=== PATIENT | female | born 1950 | race Caucasian/White ===

== ENCOUNTER 2016-04-02 19:00 | Inpatient (IN) | payer BC ==
[~2016-04-02] VITALS: Ht 162.6 cm; Wt 71.5 kg
[~2016-04-02 19:00] MED LIST: BAYER CHEWABLE81 MG PO; BUPROPION HCL100 M1 PO; CARAFATE1 G PO; ISOSORBIDE MONO30 M1 PO; LOPRESSOR25 MG PO; PLAVIX75 MG PO; PROTONIX40 MG PO; TRAMADOL HCL E100 M1 PO; XANAX0.25 MG PO
--- NOTE | 2016-04-02 21:55 | NUR ---
RECIEVED TO ROOM 2101 FROM REHAB VIA [facility]. SON AND DAUGHTER IN LAW AT BED SIDE. VITALS STABLE. PLACED ON O2 WITH HUMIDIFICATION AT 3 LITER VIA NC. PLACED BOX BED ALARM TO RIGHT SLEVE OF PTS SCRUBS TOP. ORIENTATED TO ROOM AND CL. INFORMED PT TO CALL FOR ASSISTANCE AND NOT TO GET OUT OF BED BY HER SELF, PT STATED UNDERSTANDING. BED LOW, SR UP 3, CL IN REACH.
[2016-04-02 22:35] VITALS: BP 143/73
--- NOTE | 2016-04-02 22:40 | NUR ---
IV PLACED TO RIGHT AC BY JESS YOUTH SERVICES SPECIALIST. 20 GAUGE, FIRST ATTEMPT. PT TOLERATED WELL.
[2016-04-02] MEDS ORDERED: K-DUR20 MEQ PO (22:47)
--- NOTE | 2016-04-02 23:00 | NUR ---
MAXIPIME ABX INFUSING TO RIGHT AC IV, NO S/S ADVERSE REACTION NOTED. WILL CONT TO MONITOR.
--- NOTE | 2016-04-03 00:05 | NUR ---
UP WITH ASSIST TO BR, GAIT UNSTEADY.
--- NOTE | 2016-04-03 00:31 | NUR ---
PT TRYING TO GET OUT OF BED, PULLING AT IV TUBING AND PULLING OFF OXYGEN. XANAX 1 TAB GIVEN FOR S/S AGITATION. VANC. INFUSING TO RIGHT AV IV, NO S/S ADVERSE REACTION NOTED, WILL CONT TO MONITOR.
--- NOTE | 2016-04-03 01:15 | NUR ---
PT RESTING SOUNDLY WITHOUT C/O OR DISTRESS NOTED. CALL LIGHT IS WITHIN REACH. NO NEEDS VOICED. WILL MONITOR.
[2016-04-03 01:18] VITALS: BMI 28.4
[2016-04-03 05:59] VITALS: BP 137/73
--- NOTE | 2016-04-03 07:19 | NUR ---
0705-LAYING ON RIGHT SIDE, DENIES NEEDS AT PRESENT TIME. IV INFUSING TO RIGHT AC WITHOUT REDNESS NOTED. ON 3L PER NC WITH HUM. BOX ALARM IS IN USE. CALL LIGHT AT SIDE, WILL CONTINUE TO MONITOR.
[2016-04-03 08:00] VITALS: BP 138/68
--- NOTE | 2016-04-03 10:31 | NUR ---
TO RADIOLOGY FOR CXR PAST BREATHING TREATMENT VIA WHEELCHAIR AND PORTABLE O2.
--- NOTE | 2016-04-03 10:48 | NUR ---
RETURNS FROM RADIOLOGY
[2016-04-03 11:38] VITALS: Ht 162.6 cm; Wt 71.5 kg
[2016-04-03 12:33] VITALS: BP 135/68
[2016-04-03 14:03] LABS: BASOPHILS 0.1 % (0.0-2.0); EOSINOPHILS 0 % (0-7); HEMOGLOBIN 11.1 g/dL (12-16); IMMATURE GRANULOCYTES 1.1 % (0-5); LYMPHOCYTES 8.3 % (15-50); MCH 26.6 pg (26.0-34.0); MCHC 31.7 g/dL (31.0-37.0); MCV 83.9 fL (80.0-100.0); MEAN PLATELET VOLUME 10.3 fL (7.4-10.4); MONOCYTES 4.6 % (2-11); NEUTROPHILS 85.9 % (40-80); PLATELET COUNT 351 10x3/uL (130-400); RBC 4.17 10x6/uL (4.00-5.40); RDW 16.3 % (11.5-14.5); WBC 9.8 10x3/uL (4.8-10.8)
[2016-04-03 14:11] LABS: ANION GAP 14.2 mmol/L (8-16); CALCIUM 9.1 mg/dL (8.5-10.1); CARBON DIOXIDE 33.1 mmol/L (21.0-32.0)
[2016-04-03 14:17] LABS: CREATININE - SERUM 1.4 mg/dL (0.6-1.3)
[2016-04-03 14:18] LABS: POTASSIUM - SERUM 3.3 mmol/L (3.5-5.1)
[2016-04-03 16:00] VITALS: BP 153/69
--- NOTE | 2016-04-03 16:28 | NUR ---
PLACED ON HEART MONITOR SHOWING SR, HR 84.
[2016-04-03 16:39] LABS: ALBUMIN 2.4 g/dL (3.4-5.0); BILIRUBIN - DIRECT 0.58 mg/dL (0.00-0.30); BILIRUBIN - INDIRECT 0.49 mg/dL (0.00-1.00); BILIRUBIN - TOTAL 1.07 mg/dL (0.2-1.3); PROTEIN - SERUM 5.9 g/dL (6.4-8.2)
--- NOTE | 2016-04-03 17:34 | NUR ---
1716-PATIENT IS COMPLAINING OF "CHEST PAIN". DAUGHTER THINKS IT IS MORE ANXIETY. PRN XANAX GIVEN.
[2016-04-03 20:30] VITALS: BP 173/94
--- NOTE | 2016-04-03 23:27 | NUR ---
ALERT/AWAKE TALKING TO VISITOR. DENIES ANY NEEDS.
[2016-04-04] VITALS (13 sets, daily range): BP systolic 94–137; BP diastolic 47–76
[2016-04-04 05:10] LABS: BASOPHILS 0.1 % (0.0-2.0); EOSINOPHILS 0 % (0-7); HEMATOCRIT 34.3 % (36.0-48.0); IMMATURE GRANULOCYTES 0.8 % (0-5); LYMPHOCYTES 3.9 % (15-50); MCH 26.4 pg (26.0-34.0); MCHC 32.1 g/dL (31.0-37.0); MCV 82.5 fL (80.0-100.0); MEAN PLATELET VOLUME 10.4 fL (7.4-10.4); MONOCYTES 8.5 % (2-11); NEUTROPHILS 86.7 % (40-80); PLATELET COUNT 366 10x3/uL (130-400); RBC 4.16 10x6/uL (4.00-5.40); RDW 16.5 % (11.5-14.5); WBC 13.7 10x3/uL (4.8-10.8)
[2016-04-04 05:28] LABS: APTT 34.7 SECONDS (22.8-39.4); INR 1.31 (0.85-1.17); PROTIME 16.1 SECONDS (11.6-15.0)
[2016-04-04 05:37] LABS: ANION GAP 12.1 mmol/L (8-16); CALCIUM 9.3 mg/dL (8.5-10.1); CARBON DIOXIDE 33.3 mmol/L (21.0-32.0); CREATININE - SERUM 1.3 mg/dL (0.6-1.3); POTASSIUM - SERUM 3.4 mmol/L (3.5-5.1)
--- NOTE | 2016-04-04 12:16 | NUR ---
PT BACK FROM THORACENTESIS. PT WITH CHEST TUBE TO LEFT CHEST. HOOKED UP TO WATERSEAL/PLEURVAC AND WALL SUCTION AT 20. FAMILY AT BEDSIDE. PT ALERT AND ORIENTED. PT DENIES NEEDS AT THIS TIME WILL CONTINUE TO MONITOR.
[2016-04-04 13:14] LABS: PROTEIN - BODY FLUID 3.2 G/DL
[2016-04-04 13:16] LABS: MESOTHELIALS BF 6 %; NEUT - BF 51 %
[2016-04-04 13:17] LABS: LYMPH - BF 43 %
--- NOTE | 2016-04-04 14:47 | NUR ---
GIVEN PT PILLOW AND TAUGHT PT SPLINTING TECHNIQUES FOR COUGHING.
--- NOTE | 2016-04-04 17:30 | NUR ---
PT SITTING UP IN BED READY TO GO TO SLEEP FOR THE NIGHT "JAIMIE HAD A LONG DAY." TURNED OFF LIGHTS. PT DENIES OTHER NEEDS.
[2016-04-04 18:56] LABS: APPEARANCE CLEAR (CLEAR); BILIRUBIN NEGATIVE (NEGATIVE); COLOR YELLOW (YELLOW); GLUCOSE NEGATIVE (NEGATIVE); KETONE NEGATIVE (NEGATIVE); LEUKOCYTE ESTERASE NEGATIVE (NEGATIVE); NITRITE NEGATIVE (NEGATIVE); PROTEIN NEGATIVE (NEGATIVE); SPECIFIC GRAVITY 1.015 (1.005-1.020); UROBILINOGEN NORMAL (NORMAL)
[2016-04-05 00:30] VITALS: BP 101/50
--- NOTE | 2016-04-05 01:36 | NUR ---
PT IS C/O SEVERE PAIN WHERE HER CHEST TUBE IS PLACED, AND WHERE HER RIB FX'S ARE. HAVE ASKED MUD MIXER PHYSICIAN FOR TORADOL AFTER DISCUSSING WITH PT OTHER OPTIONS FOR PAIN MEDICATION. PT STATED SHE HAS TAKEN TORADOL IN THE PAST WITHOUT ANY COMPLICATIONS AND STATES THAT IT WORKS WELL FOR HER.
--- NOTE | 2016-04-05 02:25 | NUR ---
RECEIVED ORDER FROM DR. PELAEZ ER, FOR IV TORADOL 30MG Q 6 PRN PAIN. PT WAS GIVEN THE FIRST DOSE ALONG WITH HER PRN TYLENOL. PT ALSO GIVEN WARM BLANKET TO AID WITH DISCOMFORT. CONTINUE TO MONITOR CLOSELY.
[2016-04-05 04:30] VITALS: BP 102/58
[2016-04-05 06:21] LABS: BASOPHILS 0.1 % (0.0-2.0); EOSINOPHILS 0 % (0-7); HEMATOCRIT 33.9 % (36.0-48.0); HEMOGLOBIN 10.8 g/dL (12-16); IMMATURE GRANULOCYTES 0.7 % (0-5); LYMPHOCYTES 4.1 % (15-50); MCH 26.4 pg (26.0-34.0); MCHC 31.9 g/dL (31.0-37.0); MCV 82.9 fL (80.0-100.0); MEAN PLATELET VOLUME 10.4 fL (7.4-10.4); MONOCYTES 5.5 % (2-11); NEUTROPHILS 89.6 % (40-80); RBC 4.09 10x6/uL (4.00-5.40); RDW 16.7 % (11.5-14.5)
[2016-04-05 06:28] LABS: PLATELET COUNT 470 10x3/uL (130-400); WBC 17.8 10x3/uL (4.8-10.8)
[2016-04-05 06:32] LABS: ANION GAP 12.7 mmol/L (8-16); CALCIUM 8.3 mg/dL (8.5-10.1); CARBON DIOXIDE 31.3 mmol/L (21.0-32.0); CREATININE - SERUM 1.6 mg/dL (0.6-1.3); MAGNESIUM - SERUM 1.2 mg/dL (1.8-2.4); PHOSPHOROUS 3.8 mg/dL (2.5-4.9)
--- NOTE | 2016-04-05 07:15 | NUR ---
RECIEVED REPORT ON PATIENT, PATIENT IS SLEEPING AT THIS TIME, NAD NOTED AT THIS TIME, CHEST RISES AND FALLS EQUALLY. PATIENT IS 96% ON 3L/MIN VIA NC. PATIENT HAS A R AC IV WITH NS INFUSING AT 10ML/HR. PATIENT HAS A CHEST TUBE TO L SIDE NOTED, HOOKED UP TO SUCTION. BED IS LOW AND LOCKED AT THIS TIME. PATIENT IS SR ON MONITOR WITH A RATE OF 81. WILL CONT TO MONITOR PATIENT. CPOC
[2016-04-05 07:35] VITALS: BP 105/57
--- NOTE | 2016-04-05 09:30 | NUR ---
LEAVING FLOOR. REPORT GIVEN TO WILLIAM HARDY TO RESUME CARE
--- NOTE | 2016-04-05 10:58 | NUR ---
ASSISTED UP TO BR. CONY WELL. VOIDED QS. WILL CONTINUE TO MONITOR
[2016-04-05 11:22] VITALS: BP 101/53
--- NOTE | 2016-04-05 12:41 | NUR ---
PT GOT PATIENT UP IN CHAIR. CONY WELL.
--- NOTE | 2016-04-05 13:30 | NUR ---
RETURNED TO FLOOR, RESUME CARE OF PATIENT, PATIENT IS SITTING UP IN CHAIR AT THIS TIME, DENIES ANY NEEDS, WANTS TO TRY TO KEEP SITTING UP CPOC
--- NOTE | 2016-04-05 13:32 | NUR ---
RETURNED TO RESUME CARE, PATIENT SITTING UP IN CHAIR. FAMILY AT BEDSIDE. DENIES ANY NEEDS. CPOC
--- NOTE | 2016-04-05 13:43 | NUR ---
SCDS PUT ON PATIENT AND TOLERATING. CPOC
--- NOTE | 2016-04-05 14:30 | NUR ---
CONTINUING TO FOLLOW ELECTROLYTE PROTOCOL FOR PATIENT. CPOC
[2016-04-05 15:34] VITALS: BP 100/56
--- NOTE | 2016-04-05 18:00 | NUR ---
CONTINUING TO FOLLOW ELECTROLYTE PROTOCOL FOR PATIENT. PATIENT EATING DINNER AT THIS TIME. DENIES ANY NEEDS AT THIS TIME. CPOC
[2016-04-05 22:42] VITALS: BP 125/54
--- NOTE | 2016-04-06 00:51 | NUR ---
NURSE ROUNDS 23:00 - PT LYING IN BED, AWAKE, ALERT, ORIENTED, STATED SHE IS FEELING BETTER TODAY. PT DENIED ANY ACUTE NEEDS. CONTINUE TO MONITOR CLOSELY. BED LOW, CALL LIGHT IN REACH, SIDE RAILS X 2, HOB 30 DEGREES.
--- NOTE | 2016-04-06 05:24 | NUR ---
PT AWAKE, ALERT, ORIENTED, DENIES ANY NEEDS. I DID GIVE PT A CARTON OF DIONNE LEI. CONTINUE TO MONITOR CLOSELY.
[2016-04-06 05:35] VITALS: BP 123/52
[2016-04-06 06:52] LABS: BASOPHILS 0.2 % (0.0-2.0); EOSINOPHILS 0.1 % (0-7); HEMATOCRIT 39.2 % (36.0-48.0); HEMOGLOBIN 12.1 g/dL (12-16); LYMPHOCYTES 12.1 % (15-50); MCH 25.4 pg (26.0-34.0); MCHC 30.9 g/dL (31.0-37.0); MCV 82.2 fL (80.0-100.0); MEAN PLATELET VOLUME 10.5 fL (7.4-10.4); MONOCYTES 7.2 % (2-11); NEUTROPHILS 79.4 % (40-80); PLATELET COUNT 485 10x3/uL (130-400); RBC 4.77 10x6/uL (4.00-5.40); RDW 16.8 % (11.5-14.5); WBC 16.7 10x3/uL (4.8-10.8)
[2016-04-06 06:53] LABS: ANION GAP 9.8 mmol/L (8-16); CALCIUM 8.4 mg/dL (8.5-10.1); CARBON DIOXIDE 34.8 mmol/L (21.0-32.0); CREATININE - SERUM 1.7 mg/dL (0.6-1.3); POTASSIUM - SERUM 3.6 mmol/L (3.5-5.1)
--- NOTE | 2016-04-06 07:00 | NUR ---
RECEIVED REPORT. ASSUMED CARE OF PATIENT. AWAKE, ALERT. A&O. RESP EVEN AND UNLABORED. CHEST TUBE TO LEFT CHEST PATENT. CALL LIGHT WITHIN REACH. NO DISTRESS.
[2016-04-06 07:25] VITALS: BP 100/52
--- NOTE | 2016-04-06 09:16 | NUR ---
IR HERE AND REMOVED CHEST TUBE FROM POSTERIOR LEFT UPPER BACK AREA. NO DISTRESS.
[2016-04-06 11:21] VITALS: BP 113/63
--- NOTE | 2016-04-06 12:30 | NUR ---
SPOKE WITH BRYN IN IR ABOUT DRESSING APPLIED TO PATIENTS LEFT UPPER BACK AFTER CHEST TUBE REMOVED THIS AM. DRESSING SATURATED WITH CLEAR SEROUS FLUID. BRYN GAVE AUTHORIZATION TO CHANGE 4X4'S BUT TO LEAVE THE PETROLEUM GAUZE IN PLACE AND COVER WITH A TEGADERM. DRESSING CHANGED AT THIS TIME WHILE PATIENT SITTING UP TO CHAIR AT BEDSIDE. NO DISTRESS. TOLERATED DRESSING CHANGE WELL.
--- NOTE | 2016-04-06 13:36 | NUR ---
Nutrition follow-up: Diet: Low sodium PO intake ~75% of meals Labs reviewed Wt: 157# +BM Chest tube removed today PO intake remains good at this time Will continue to provide food choices and honor food preferences. RDN following.
--- NOTE | 2016-04-06 15:27 | NUR ---
Patient Name: BREN GOLDEN Admission Status: Elective Accout number: [id number] Admission Date: 04-02-2016 : 1950 Admission Diagnosis:PNEUMONIA, UNSPECIFIED ORGANISM Attending: SOFY Current LOS: 4 Anticipated DC Date: Planned Disposition: Home Primary Insurance: [employer] (now [employer]) HLTH EXCHANGE Discharge Planning Comments: * Is the patient Alert and Oriented? Yes 0 * How many steps to enter\exit or inside your home? NONE 0 * PCP DR ORTIZ 0 * Pharmacy [facility] [address] 0 * Preadmission Environment Acute Inpatient Rehab 0 * Facility Name [facility] 0 * ADLs Partial Dependent 0 * Partial ADLs (Assistance needed) Ambulation Medication Management 0 * Equipment Cane Nebulizer Shower Chair Walker 0 * Other Equipment [employer] [facility] MEDICAL EQUIPMENT PROVIDER PREFERENCE 0 * List name and contact numbers for known caregivers / representatives who currently or will assist patient after discharge: AG GOLDEN, FATHER, 0 * Community resources currently utilized None 0 * Please name any agencies selected above. NONE 0 * Additional services required to return to the preadmission environment? No 0 * Can the patient safely return to the preadmission environment? Yes 0 * Has this patient been hospitalized within the prior 30 days at any hospital? Yes 0 CM MET WITH PT IN ROOM TO DISCUSS DISCHARGE PLANNING AND NEEDS. PT REPORTS LIVING AT HOME INDEPENDENTLY WITH HER SISTER. PT HAS SHOWER CHAIR, WALKER, NEBULIZER AND CANE, PROVIDER IS [employer]. PT HAS NO OUTSIDE SERVICES ASSISTING IN THE HOME. PT WAS AT THE [facility] PRIOR TO REHAB AT [place] AND THEN ADMITTED HERE FOR ACUTE CARE. PT REPORTS SHE CAME CLOSE TO DYING TWICE. CM DISCUSSED AVAILABILITY OF HOME HEALTH, REHAB SERVICES AND MEDICAL EQUIPMENT. PT DENIES DISCHARGE NEEDS AND THINKS SHE DOES NOT NEED TO GO BACK TO INPATIENT REHAB NOR NEEDS HOME HEALTH; PT REPORTS HER SON OR SISTER WILL PICK HER UP FOR DISCHARGE HOME. BALWINDER MAGALLON, PT'S INSURANCE BURN OUT SCARFING OPERATOR IS HERE TO SEE PT IN ROOM. PT DENIES DISCHARGE NEEDS AT THIS TIME, PLANS TO DISCHARGE BACK HOME WITH HER SISTER THAT IS AVAILABLE TO ASSIST NEEDED. CM TO FOLLOW AND ASSIST NEEDED. Plant Operations Engineer: Wero Rivera
[2016-04-06 15:33] VITALS: BP 112/57
[2016-04-06 22:28] VITALS: BP 103/56
[2016-04-07 00:59] VITALS: BP 124/57
--- NOTE | 2016-04-07 03:39 | NUR ---
NURSE ROUNDS 19:30 - PT AWAKE, ALERT, ORIENTED, FRIEND AT BEDSIDE. PT DENIES ANY NEEDS. CONTINUE TO MONITOR CLOSELY. BED LOW, CALL LIGHT IN REACH, SIDE RAILS X 2, HOB 30 DEGREES. PT STATES SHE IS FEELING BETTER, AND IS HAVING NO DIFFICULTY SINCE HAVING THE CHEST TUBE REMOVED.
[2016-04-07 05:21] VITALS: BP 113/66
[2016-04-07 06:16] LABS: BASOPHILS 0.5 % (0.0-2.0); EOSINOPHILS 0.5 % (0-7); HEMATOCRIT 36.9 % (36.0-48.0); HEMOGLOBIN 11.4 g/dL (12-16); IMMATURE GRANULOCYTES 1.2 % (0-5); LYMPHOCYTES 16.3 % (15-50); MCH 25.4 pg (26.0-34.0); MCHC 30.9 g/dL (31.0-37.0); MCV 82.2 fL (80.0-100.0); MONOCYTES 8.5 % (2-11); PLATELET COUNT 450 10x3/uL (130-400); RBC 4.49 10x6/uL (4.00-5.40); RDW 16.6 % (11.5-14.5)
[2016-04-07 06:19] LABS: WBC 11.3 10x3/uL (4.8-10.8)
--- NOTE | 2016-04-07 06:27 | NUR ---
PT AWAKE, ALERT, ORIENTED, DENIES ANY NEEDS. PTS IV INFILTRATED AND PT DOES NOT WANT TO BE RESITED R/T TO BEING D/C TODAY. CONTINUE TO MONITOR CLOSELY.
[2016-04-07 07:02] LABS: ANION GAP 11.3 mmol/L (8-16); CALCIUM 8.4 mg/dL (8.5-10.1); CREATININE - SERUM 1.7 mg/dL (0.6-1.3); POTASSIUM - SERUM 3.3 mmol/L (3.5-5.1); VANCOMYCIN - TROUGH 29.6 ug/mL (10.0-20.0)
[2016-04-07 08:00] VITALS: BP 124/69
[2016-04-07 10:19] LABS: FUNGUS STAIN Final report (())
--- NOTE | 2016-04-07 11:35 | NUR ---
Sitting on side of bed, respirations easy. Telemetry in place at SR 98. States she is felling better and has requested to be discharged today. Assessment complete, dressing clean, dry and intact to left side from abandon chest tube.
[2016-04-07] MEDS ORDERED: CLEOCIN HCL300 MG PO (11:50)
[2016-04-07] MEDS ORDERED: FLORAJEN3 CAPS460 MG PO (11:50)
[2016-04-07] MEDS ORDERED: MELATONIN 3 MG1 TAB PO (11:50)
[2016-04-07] MEDS ORDERED: LEVAQUIN500 MG PO (11:50)
[2016-04-07] MEDS ORDERED: PREDNISONE20 MG PO (11:50)
[2016-04-07] MEDS ORDERED: LASIX20 MG PO (11:50)
[2016-04-07 12:00] VITALS: BP 127/73
[2016-04-07 17:11] LABS: AFB SPECIMEN PROCESSING Concentration (())
--- NOTE | 2016-04-08 14:44 | EC ---
PATIENT:BREN GOLDEN DATE OF SERVICE: 04/02/16 SEX: F MEDICAL RECORD: [id number] DATE OF : [birth year] LOCATION:D.M2 D.210 AGE OF PATIENT: 65 ADMISSION DATE: 04/02/16 REFERRING PHYSICIAN: INTERPRETING PHYSICIAN: GUNNAR REYES MD ECHOCARDIOGRAM REPORT ECHO CHARGES 4 ECHO COMPLETE CLINICAL DIAGNOSIS: CHF ECHOCARDIOGRAPHIC MEASUREMENTS (adult normal given) AC root (d.<3.7cm) 4.0 LV Septum d (<1.2 cm> 1.5 Valve Excursion 1.5 LV Septum (systole) 1.7 Left Atria (s.<4.0cm> 3.1 LVPW d(<1.2cm) 1.5 RV (d.<2.3cm) 4.1 LVPW (sytole) 1.6 LV diastole(<5.6CM) 5.2 MV E-F(>70mm/sec) LV systole 3.7 LVOT Diameter 1.9 MV exc.(>10mm) 1.9 Est.ejection fraction (50-75%) Pericardial Effusion N DOPPLER: LVIT A 68.0 E 89.0 LA RVSP 22 LVOT 98 AOP1/2T 529 Asc. Ao 137 RVOT 85 RA PA AV Gradient Peak 7.51 AV Mean 4.30 AV Area 2.4 MV Gradient Peak 4.02 MV Mean 1.2 MV Area COMMENTS: Spring Fitter Helper: Martita DAVIS Automatic Bandsaw Tender:Mary Argueta TAPE# PACS DATE OF SERVICE: 04/03/2017 Adequate 2D echo, color flow and spectral Doppler, and M-mode. LVH is present. LV internal dimension normal. Wall motion is normal. EF is greater than or equal to 55%. Aortic valve sclerosis without stenosis by Doppler interrogation. The left atrium is normal at 3.1 cm. Mitral valve shows no prolapse. Trace MR. Right-sided chamber is grossly normal. Trace TR. TRANSINT:[id number] Voice Confirmation ID: [id number] DOCUMENT ID: [id number] ECHOCARDIOGRAM REPORT [id number] BREN GOLDEN GUNNAR REYES MD at 1444 CC: [id number] DICTATION DATE: 04/04/16 0911 OUTBOARD MOTORS EXPERIMENTAL MECHANIC: 04/04/16 1013 DIS IN 04/07/16 [facility] [address] [facility], [facility]
--- NOTE | 2016-04-08 14:44 | CN ---
PATIENT NAME:BREN GOLDEN MEDICAL RECORD: [id number] : [birth year] LOCATION:D. D.2102 ADMIT DATE: 04/02/16 ACCOUNT: [id number] CONSULTING PHYSICIAN: GUNNAR REYES MD REFERRING PHYSICIAN: SHUBHAM BRAR MD DATE OF CONSULTATION: 04/03/2016 Cardiology Consultation HISTORY OF PRESENT ILLNESS: This is a 65-year-old female transferred up from rehab, somewhat intermittently confused, but had a protracted course at the [facility]. Most of the information is gleaned from old chart. Apparently underwent stenting to the right coronary under TIVA at the [facility], had subsequent V-tach, V-fib, required cardioversion and CPR, subsequently fractured ribs 3rd through 7th. She was noted to have a pleural effusion with some hematoma and was transferred here for worsening dyspnea. Some of this sounds pulmonary edema. LV function is unknown at this point, ____ ongoing pain, worse with inspiration. PAST MEDICAL HISTORY: Includes: 1. History of coronary artery disease as described above with ____. She has history of chronic renal insufficiency. 2. Hypertension. 3. Hyperlipidemia. 4. Cardiovascular disease status post cerebrovascular accident. 5. Obstructive pulmonary disease. 6. Gastroesophageal reflux disease. SOCIAL HISTORY: Currently, unobtainable. REVIEW OF SYSTEMS: Unobtainable. MEDICATIONS: On transfer here include Plavix 75 every day, Imdur 30 b.i.d., metoprolol 25 b.i.d., Xanax 0.25 q.6 p.r.n., aspirin 81 mg every day, tramadol 100 mg q.6 hours p.r.n., Lasix 40 every day, Protonix 40 every day, Carafate 1 gram a.c. and q.h.s. PHYSICAL EXAMINATION: GENERAL: Middle-aged female, appears somewhat older than stated age. VITAL SIGNS: Blood pressure 138/68, pulse 83 and regular. HEENT: Normocephalic and atraumatic. NECK: No bruits noted. HEART: Regular. Limited exam ____ obvious S3. LUNGS: Diminished air excursion, some of this due to pleuritic pain. ABDOMEN: Soft and nontender. EXTREMITIES: Pulses are actually well preserved, 2+ with no edema. IMPRESSION: Coronary artery disease, status post complicated ____ intervention with right coronary cusp dissection, ventricular tachycardia, ventricular fibrillation, CPR. At this point in time, we will check echocardiographic study to get a baseline of her EF post-code, etc. Further recommendations based on clinical course. TRANSINT:[id number] Voice Confirmation ID: [id number] DOCUMENT ID: [id number] CONSULT REPORT [id number] BREN GOLDEN,GUNNAR Sanchez MD at 1444 CC: [id number] DICTATION DATE: 04/03/16 1102 DIGITAL CARTOGRAPHIC TECHNICIAN: 04/03/16 1417 DIS IN 04/07/16 [id number] [place] [address]
--- NOTE | 2016-04-28 09:12 | CN ---
PATIENT NAME:BREN GOLDEN MEDICAL RECORD: [id number] : 54 LOCATION:D. D.2102 ADMIT DATE: 04/02/16 ACCOUNT: [id number] CONSULTING PHYSICIAN: SHEY ENG MD REFERRING PHYSICIAN: KP SANTIAGO MD DATE OF CONSULTATION: 04/02/2016 Pulmonary Consultation CONSULT REQUESTING PHYSICIAN: Dr. Kp Santiago. REASON FOR CONSULTATION: Dyspnea, shortness of breath, COPD exacerbation, and bilateral pleural effusion. HISTORY OF PRESENT ILLNESS: Ms. Golden is a 65-year-old female, who was transferred from [facility] for rehab. She sustained 2 cardiopulmonary arrests and resuscitated successfully. She has underwent cardiac catheterization and stent placement. For the last couple of days, she has worsening shortness of breath. She is wheezing. She is coughing. Denies any chest pain. There are no fever and chills, no night sweats. REVIEW OF SYSTEMS: Mainly in the history of present illness. PAST MEDICAL HISTORY: 1. Coronary artery disease. 2. Status post cardiopulmonary arrest. 3. Chronic obstructive pulmonary disease. 4. Hypertension. 5. History of cerebrovascular accident. 6. History of abdominal aortic aneurysm. PAST SURGICAL HISTORY: 1. Appendectomy. 2. Abdominal aortic aneurysm. 3. Multiple cardiac catheterization and stent placement. ALLERGIES: SHE IS ALLERGIC TO DEMEROL. PRESENT MEDICATIONS: On [email or web address] was reviewed. PERSONAL AND SOCIAL HISTORY: The patient is an ex-smoker. She is a nondrinker. FAMILY HISTORY: Noncontributory. PHYSICAL EXAMINATION: GENERAL: The patient is lying comfortably. She is not in acute distress. VITAL SIGNS: The blood pressure 143/73, pulse is 78, respirations 22, temperature 98.2, SPO2 is 90% on 3 liter nasal cannula. HEENT: Conjunctivae are pink. Sclerae nonicteric. NECK: Supple. There is elevated JVD. CHEST: There are bilateral crackles. There are absent sound left base. HEART: Rhythm regular, normal sound, no murmur. ABDOMEN: Soft, bowel sounds present. No hepatosplenomegaly. RECTAL: Deferred. EXTREMITIES: No cyanosis, no clubbing, no pedal edema. CONSULT REPORT [id number] BREN GOLDEN SKIN: Warm, normal turgor. There is 1+ extremity. CENTRAL NERVOUS SYSTEM: The patient is awake and alert. There is no obvious cranial nerve abnormality. The gait was not tested. LABORATORY DATA: CBC: The WBC is 13.4, hemoglobin 9.7, hematocrit is 31, the platelet count 224. Chemistry: Sodium 140, potassium 4.2, chloride 106, BUN is 66, and creatinine is 2.1. IMAGING: Chest radiograph, there is a large left-sided pleural effusion with associated infiltrate. There is small-sized right pleural effusion. IMPRESSION: 1. Acute hypoxic respiratory failure. 2. Acute exacerbation of chronic obstructive pulmonary disease. 3. Bilateral pleural effusions, left more than the right. Possible left-sided parapneumonic. 4. Pneumonia, left lower lobe, most likely hospital-acquired pneumonia with the patient's recent hospitalization. 5. Acute exacerbation. 6. Congestive heart failure, possible systolic dysfunction with coronary artery disease. 7. Status post cardiopulmonary arrest. 8. Coronary artery disease status post stent placement. RECOMMENDATION: 1. Start her on vancomycin, cefepime and Levaquin to cover for methicillin-resistant Staphylococcus aureus as well as Gram-negative rods, with the patient's recent hospitalization, possible hospital-acquired pneumonia. 2. Albuterol and ipratropium nebulizer. 3. Brovana and budesonide nebulizer. 4. Methylprednisolone IV. 5. Start on IV Lasix. 6. Get cardiology consult. Check the cardiac echo. Check the decubitus film, significant fluid on the left. We will proceed with thoracentesis. 7. Get nephrology consult. Dr. Santiago, once again, thank you for involving me in the care of Ms. Golden. TRANSINT:[id number] Voice Confirmation ID: [id number] DOCUMENT ID: [id number] SHEY ENG MD at 0912 CC: KP SANTIAGO MD [id number] DICTATION DATE: 04/03/16 1031 CREAM BUYER: 04/03/16 1359 DIS IN 04/07/[address] [place] [address]
[2016-05-05 07:23] LABS: FUNGUS MYCOLOGY CULTURE Final report (())
--- NOTE | 2016-05-25 09:49 | DS ---
PATIENT:BREN GOLDEN :54 MEDICAL RECORD: [id number] DISCHARGE SUMMARY ADMISSION DATE: 04/02/16 DISCHARGE DATE: 04/07/16 DATE OF ADMISSION: 04/02/2016 DATE OF DISCHARGE: 04/07/2016 DIAGNOSES: 1. Acute hypoxic respiratory failure. 2. Acute exacerbation of chronic obstructive pulmonary disease. 3. Bilateral pleural effusions, peripneumonic. 4. Right lower lobe pneumonia, most likely hospital-acquired. 5. Mgtfw-bz-bprtstv congestive heart failure. 6. Status post cardiopulmonary arrest. 7. Coronary artery disease. 8. Hypertension. 9. Hyperlipidemia. 10. Renal failure. CONSULTS: Dr. Abebe and [place]. Dr. Hill. HOSPITAL COURSE: This is a 65-year-old female that was transferred from rehabilitation, who has had a long course at [facility]. Apparently, underwent stenting of the RCA at [facility], had a subsequent V-tach and V-fib, requiring cardioversion and a CPR. She had a noted pleural effusion with some hematoma and was transferred for worsening dyspnea. She was noted to have some chronic obstructive pulmonary disease exacerbation with [id number]-[id number] hypoxic respiratory failure. She was started on vancomycin, cefepime and Levaquin, as well as DuoNeb updrafts and IV Solu-Medrol and Lasix. Several consultants did see the patient during her hospitalization. She underwent a CT-guided thoracentesis and had a chest tube placed for peripneumonic fluids. A 2D echo showed LV function of 55% with right-sided chamber size, was normal. There is trace regurgitation. The patient's condition did improve with aggressive pulmonary toilet and antibiotic therapy. Her chest tube was removed. The patient was thought to be stable to discharge to home. She had followup appointments in the outpatient setting with Georgi who is the patient primary care physician and Dr. Abebe. Her renal function improved and renal ____. See med rec. TRANSINT:[id number] Voice Confirmation ID: [id number] DOCUMENT ID: [id number] Dictated By: GABRIEL CHASE I have interviewed/examined the above patient and agree with these documented findings. at 1367 at 0948 CC: [id number] DICTATION DATE: 05/21/16 0810 FREIGHT CAR CLEANER DELTA SYSTEM: 05/22/16 0032 DIS IN 04/07/16 [facility] [address] [place] [address]
[2016-05-27 12:16] LABS: ACID FAST CULTURE Negative (()); ACID FAST SMEAR Negative (())
== END 2016-04-07 13:50 | disposition home or self-care (01) | DRG 291 ==
LOC: D.M2 19:00
PROVIDERS: Family Medicine; General Practice; Internal Medicine Nephrology; Internal Medicine Pulmonary Disease; ADMIT Emergency Medicine
PROC: 0W9B30Z Drainage of Left Pleural Cavity with Drainage Device, Percutaneous Approach (ICD-10-PCS; principal; 2016-04-04 11:00)
DX: I11.0 Hypertensive heart disease with heart failure (principal); J15.6 Pneumonia due to other Gram-negative bacteria; J96.01 Acute respiratory failure with hypoxia; J44.0 Chronic obstructive pulmonary disease with (acute) lower respiratory infection; J98.11 Atelectasis; N17.9 Acute kidney failure, unspecified; J90 Pleural effusion, not elsewhere classified; S22.43XA Multiple fractures of ribs, bilateral, initial encounter for closed fracture; J44.1 Chronic obstructive pulmonary disease with (acute) exacerbation; I50.21 Acute systolic (congestive) heart failure; I25.10 Atherosclerotic heart disease of native coronary artery without angina pectoris; X58.XXXA Exposure to other specified factors, initial encounter; Z95.5 Presence of coronary angioplasty implant and graft; Z86.73 Personal history of transient ischemic attack (TIA), and cerebral infarction without residual deficits; Z87.891 Personal history of nicotine dependence

== ENCOUNTER 2016-04-27 08:03 | Inpatient (IN) | payer OTHER ==
[~2016-04-27] VITALS: Ht 162.6 cm; Wt 69.4 kg
[~2016-04-27 08:03] MED LIST changes: +CLEOCIN HCL300 MG PO; +FLORAJEN3 CAPS460 MG PO; +K-DUR20 MEQ PO; +LASIX20 MG PO; +LEVAQUIN500 MG PO; +MELATONIN 3 MG1 TAB PO; +PREDNISONE20 MG PO
[2016-04-27 08:48] LABS: BASOPHILS 0.3 % (0.0-2.0); HEMATOCRIT 34.4 % (36.0-48.0); HEMOGLOBIN 10.7 g/dL (12-16); IMMATURE GRANULOCYTES 0.7 % (0-5); LYMPHOCYTES 11.9 % (15-50); MCH 25.8 pg (26.0-34.0); MCHC 31.1 g/dL (31.0-37.0); MCV 83.1 fL (80.0-100.0); MEAN PLATELET VOLUME 10.1 fL (7.4-10.4); NEUTROPHILS 74.1 % (40-80); RBC 4.14 10x6/uL (4.00-5.40); RDW 17.7 % (11.5-14.5); WBC 9.2 10x3/uL (4.8-10.8)
[2016-04-27 08:55] LABS: PLATELET COUNT 190 10x3/uL (130-400)
[2016-04-27 09:00] LABS: ALBUMIN 2.4 g/dL (3.4-5.0); ALKALINE PHOSPHATASE 150 U/L (46-116); ALT (SGPT) 16 U/L (10-68); BILIRUBIN - TOTAL 0.81 mg/dL (0.2-1.3); CALC OSMOLALITY 276 mosm/kg (275-300); CALCIUM 9.2 mg/dL (8.5-10.1); CARBON DIOXIDE 21.3 mmol/L (21.0-32.0); CHLORIDE - SERUM 101 mmol/L (98-107); CREATININE - SERUM 1.5 mg/dL (0.6-1.3); GLUCOSE 141 mg/dL (74-106); POTASSIUM - SERUM 3.5 mmol/L (3.5-5.1); PROTEIN - SERUM 6.2 g/dL (6.4-8.2); SODIUM 137 mmol/L (136-145); UREA NITROGEN 14 mg/dL (7-18); eGFR NON AFRICAN AMERICAN 37 mL/min (90-120)
[2016-04-27 09:10] LABS: CHOL - HDL RATIO 4.3 ratio (2.3-4.1); CHOLESTEROL, TOTAL 190 mg/dL (0-200); CKMB 0.5 U/L (0.0-3.6); CREATINE KINASE 12 UL (21-215); HDL CHOLESTEROL 44 mg/dL (32-96); LDL CHOLESTEROL 118 mg/dL (0-100); LDL-HDL RATIO 2.7 ratio (1.5-3.5); TRIGLYCERIDE 140 mg/dL (30-200); TROPONIN-I 0.043 ng/mL (0.000-0.060)
--- NOTE | 2016-04-27 12:55 | NUR ---
DAVID RECEIVED TO ROOM VIA WC FROM ER ACCOMPANIED BY NURSE, DAUGHTER IN THE ROOM WITH HER. SHE IS C/O CHEST PAIN RATING AN 8. XANAX GIVEN. REPORTED TO DR. LUCAS. NEW ORDERS RECEIVED.
--- NOTE | 2016-04-27 13:31 | NUR ---
PATIENT REQUESTS MORPHINE FOR CHEST PAIN THAT SHE RATES AN 8. SHE STATES THAT COUGHING, LAYING FLAT AND BECOMING SHORT OF BREATH CAUSES HER INCREASED CHEST PAIN.
--- NOTE | 2016-04-27 14:17 | NUR ---
PATINT SITTING UP IN HER BED, C/O PAIN THAT SHE IS RATING A 7 IN HER CHEST. SHE IS TALKING ON THE PHONE, COUGHS IN ANSWER TO MY QUESTION IF SHE IS SOB.
[2016-04-27 16:29] VITALS: BP 128/68
[2016-04-27 19:00] VITALS: BP 113/67
--- NOTE | 2016-04-27 19:03 | NUR ---
SITTING UP IN BED, AAOX3, SKIN WARM AND DRY, RESP UNLABORED, IV PATENT TO RIGHT FOREARM, VISITOR AT BEDSIDE, NO DISTRESS NOTED
[2016-04-27 19:10] VITALS: BMI 26.1
[2016-04-28] VITALS: BP 121/62
--- NOTE | 2016-04-28 01:51 | NUR ---
PT SLEEPING, NO S&S OF DISTRESS NOTED. BREATHING UNLABORED. TELEMETRY SHOWING NSR AT 87 BPM. BED LOW AND LOCKED, CALL LIGHT IN REACH. WILL CONTINUE TO MONITOR.
[2016-04-28 04:00] VITALS: BP 99/61
[2016-04-28 06:56] LABS: BASOPHILS 0.1 % (0.0-2.0); EOSINOPHILS 0 % (0-7); HEMATOCRIT 32.7 % (36.0-48.0); HEMOGLOBIN 10.1 g/dL (12-16); IMMATURE GRANULOCYTES 0.7 % (0-5); LYMPHOCYTES 8.8 % (15-50); MCH 25.6 pg (26.0-34.0); MCHC 30.9 g/dL (31.0-37.0); MCV 82.8 fL (80.0-100.0); MEAN PLATELET VOLUME 9.4 fL (7.4-10.4); MONOCYTES 6.7 % (2-11); NEUTROPHILS 83.7 % (40-80); PLATELET COUNT 225 10x3/uL (130-400); RBC 3.95 10x6/uL (4.00-5.40); RDW 17.3 % (11.5-14.5); WBC 8.9 10x3/uL (4.8-10.8)
[2016-04-28 07:09] LABS: ANION GAP 17.3 mmol/L (8-16); CALCIUM 9.9 mg/dL (8.5-10.1); CARBON DIOXIDE 24.3 mmol/L (21.0-32.0); CREATININE - SERUM 1.8 mg/dL (0.6-1.3); POTASSIUM - SERUM 3.6 mmol/L (3.5-5.1)
--- NOTE | 2016-04-28 08:16 | NUR ---
INTRODUCED MYSELF TO PT PRIMARY RN FOR TODAYS SHIFT. PT IS ALERT AND ORIENTED SITTING UP IN BED EATING BREAKFAST. PT C/O CHEST PAIN REQUESTING AND PROVIDED WITH PRN MORPHINE. PTS LUNGS ARE CTA THROUGHOUT ALL LOBES WITH LOWER LOBES SLIGHTLY DIMINISHED. PT HAS A R.HAND PIV WITH DRSG CDI AND SWAB CAPS IN USE. PT DENIES ANY FURTHER NEEDS AT THIS TIME, CL IN REACH. WILL CPOC.
[2016-04-28 08:21] VITALS: BP 102/54
--- NOTE | 2016-04-28 09:13 | CN ---
PATIENT NAME:BREN GOLDEN MEDICAL RECORD: [id number] : 54 LOCATION:. D.2124 ADMIT DATE: 04/27/16 ACCOUNT: [id number] CONSULTING PHYSICIAN: SHEY ENG MD REFERRING PHYSICIAN: LOYDA SHANKS MD DATE OF CONSULTATION: 04/27/2016 CONSULT REQUESTING PHYSICIAN: Loyda Shanks MD REASON FOR CONSULTATION: Acute exacerbation of COPD and chest pain. HISTORY OF PRESENT ILLNESS: Ms. Golden is a 65-year-old female, who has a history of COPD and coronary artery disease. Recently, she was in the [facility] in [place] where she sustained 2 cardiopulmonary arrests. She has multiple rib fractures. She has a huge left-sided pleural effusion and thoracentesis was done, which was consistent with hemothorax. The patient did well and discharged home. Now, she is readmitted, for the last 3 days, fever of 103, coughing, whenever she coughs her chest hurts. She also has shortness of breath. She hears herself wheezing. REVIEW OF SYSTEMS: Mainly in the history of present illness. PAST MEDICAL HISTORY: 1. Coronary artery disease. 2. COPD. 3. Hypertension. 4. History of cerebrovascular accident. 5. History of abdominal aortic aneurysm. 6. Status post cardiac arrest times 2. PAST SURGICAL HISTORY: 1. Appendectomy. 2. Abdominal aortic aneurysm repair. 3. She has multi-catheterizations and stent placement in the past. ALLERGIES: SHE IS ALLERGIC TO DEMEROL. PRESENT MEDICATIONS: On [employer] was reviewed. PERSONAL AND SOCIAL HISTORY: The patient is an ex-smoker. She is a nondrinker. FAMILY HISTORY: Noncontributory. PHYSICAL EXAMINATION: GENERAL: Now, the patient is lying comfortably in bed. She coughs. VITAL SIGNS: The blood pressure is 165/84, pulse is 116, respirations 20, temperature is 98.5 and SpO2 is 96% on room air. HEENT: Conjunctivae pink, sclerae nonicteric. NECK: Supple, no JVD. CHEST: Excursion is minimal on both sides. There is left side basal crackle. There is wheeze on forceful expiration. HEART: Rhythm regular, normal sound, no murmur. ABDOMEN: Soft. Bowel sounds present. No hepatosplenomegaly. RECTAL: Deferred. EXTREMITIES: No cyanosis, no clubbing, no pedal edema. CONSULT REPORT [id number] BREN GOLDEN SKIN: Warm, normal turgor. CENTRAL NERVOUS SYSTEM: The patient is awake and alert. There is no obvious cranial nerve abnormality. The gait was not tested. IMAGING: CTA of the chest is negative for PE. There is left basilar atelectasis. There is small pleural effusion. There is a pericardial effusion. LABORATORY DATA: CBC: WBC is 9.2, hemoglobin 10.7, hematocrit 34.7 and platelet count 190. Chemistry: Sodium 137, potassium is 3.5, BUN is 14 and creatinine 1.5. IMPRESSION: 1. Acute exacerbation of chronic obstructive pulmonary disease. 2. Tracheobronchitis. 3. Chest pain, most likely musculoskeletal in origin secondary to fractured ribs. 4. Acute cough. 5. History of coronary artery disease. 6. Left pleural effusion, most likely residual post-hemothorax. 7. Pericardial effusion. RECOMMENDATION: Start on albuterol/ipratropium nebulizers, Brovana and budesonide nebulizer, and methylprednisolone IV. Start on doxycycline, Mucinex DM and Tussionex cough syrup. Follow up labs and chest x-ray in the morning. Dr. Shanks, once again thanks for involving me in the care of Ms. Golden. TRANSINT:[id number] Voice Confirmation ID: [id number] DOCUMENT ID: [id number] SHEY ENG MD at 0913 CC: LOYDA SHANKS MD [id number] DICTATION DATE: 04/27/16 1608 DISTRICT PLANT SUPERVISOR: 04/27/161957 ADM IN [id number] [place] [address]
--- NOTE | 2016-04-28 10:32 | NUR ---
PT RESTING QUIETLY IN BED WITH EYES CLOSED. RR NONLABORED ON RA. NO S/S OF DISTRESS OR ANY CURRENT NEEDS NOTED AT THIS TIME. CL IN REACH. WILL CPOC.
[2016-04-28 12:05] VITALS: BP 107/58
--- NOTE | 2016-04-28 12:54 | NUR ---
PT C/O DEEP SHARP ACHING PAINS IN HER CHEST/LUNGS AREA. REQUESTED AND PROVIDED WITH PRN MORPHINE VIA R.HAND PIV ACCESS. SITE HAS DRSG CDI AND SWAB CAPS IN USE. NO FURTHER NEEDS NOTED AT THIS TIME. CL IN REACH, WILL CTM.
[2016-04-28 13:30] VITALS: Ht 162.6 cm; Wt 69.4 kg
--- NOTE | 2016-04-28 14:02 | NUR ---
PT AMBULATING IN KNIGHT. RR NONLABORED. PT STATES SHE IS FEELING WELL DENIES ANY CURRENT PAIN OR NEEDS. WILL CPOC.
[2016-04-28 16:00] VITALS: BP 98/54
--- NOTE | 2016-04-28 16:19 | NUR ---
PTS R.HAND PIV INFILTRATED. D/C WITH CATHETER TIP FULLY INTACT. 20 GUAGE INSERTED INTO R.FA X1 ATTEMPT. PT REQUESTED AND WAS PROVIDED WITH PRN MORPHINE FOR CHEST/LUNG PAIN. ADMINISTERED SCHEDULED SOLU-MEDROL WELL AND CONNECTED PT TO IV TUBING FOR IV ANBX INFUSING OVER 2 HOURS. PT NOW RESTING AND DENIES ANY FURTHER NEEDS AT THIS TIME. WILL CPOC.
--- NOTE | 2016-04-28 16:28 | NUR ---
OFFERED SCDS BUT PT REFUSED R/T GETTING UP OFTEN TO URINATE AND AMBULATE THE HALLS.
--- NOTE | 2016-04-28 19:03 | NUR ---
SITTING UP IN BED, AAOX3, SKIN WARM AND DRY, RESP UNLABORED, IV PATENT TO RIGHT FOREARM, MOOD PLEASANT, NO DISTRESS NOTED
[2016-04-28 19:56] VITALS: BP 94/50
[2016-04-29] VITALS: BP 90/47
--- NOTE | 2016-04-29 01:31 | NUR ---
LYING IN BED, CALL LIGHT IN REACH. WILL CONTINUE WITH PLAN OF CARE.
[2016-04-29 04:00] VITALS: BP 106/55
--- NOTE | 2016-04-29 05:39 | NUR ---
RESTING QUIETLY IN BED, NO DISTRESS NOTED
[2016-04-29 06:00] LABS: BASOPHILS 0.1 % (0.0-2.0); EOSINOPHILS 0 % (0-7); IMMATURE GRANULOCYTES 0.4 % (0-5); LYMPHOCYTES 7.4 % (15-50); MCH 25.8 pg (26.0-34.0); MCHC 31.3 g/dL (31.0-37.0); MCV 82.5 fL (80.0-100.0); MEAN PLATELET VOLUME 10.2 fL (7.4-10.4); MONOCYTES 3.9 % (2-11); NEUTROPHILS 88.2 % (40-80); RBC 3.88 10x6/uL (4.00-5.40); RDW 17.3 % (11.5-14.5)
[2016-04-29 06:15] LABS: PLATELET COUNT 295 10x3/uL (130-400); WBC 13.6 10x3/uL (4.8-10.8)
[2016-04-29 06:34] LABS: ANION GAP 16.7 mmol/L (8-16); CALCIUM 9.8 mg/dL (8.5-10.1); CARBON DIOXIDE 25.1 mmol/L (21.0-32.0); CREATININE - SERUM 1.8 mg/dL (0.6-1.3); POTASSIUM - SERUM 3.8 mmol/L (3.5-5.1)
--- NOTE | 2016-04-29 07:29 | NUR ---
INTRODUCED MYSELF TO PT PRIMARY RN FOR TODAYS SHIFT. PT IS ALERT AND ORIENTED RESTING QUIETLY IN BED. DISCONNECTED PT FROM IV ANBX. FLUSHED R.FA PIV WITH EASE AND GOT GOOD BLOOD RETURN. SWAB CAPS IN USE. MEGHAN CDI. PT STATES SHE SLEPT WELL AND THAT HER PRN COUGH MED REALLY HELPS. PT DENIES ANY CURRENT NEEDS AT THIS TIME, CL IN REACH. WILL CPOC.
[2016-04-29 08:00] VITALS: BP 102/56
--- NOTE | 2016-04-29 10:54 | NUR ---
PT REQUESTED AND WAS PROVIDED WITH PRN MORPHINE FOR HER CHEST/LUNG PAIN. PT VOICED THANKS AND IS RESTING QUIETLY IN BED. DENIES ANY FURTHER NEEDS AT THIS TIME. CL IN REACH. WILL CPOC.
[2016-04-29 12:00] VITALS: BP 130/46
[2016-04-29 16:00] VITALS: BP 112/53
--- NOTE | 2016-04-29 20:00 | NUR ---
PT RESTING IN BED. NONLABORED RESPIRATIONS ON ROOM AIR. SALINE LOCK TO RFA. REVIEWED PLAN OF CARE. ASSESSMENT COMPLETED.
[2016-04-29 21:18] VITALS: BP 128/76
--- NOTE | 2016-04-29 21:54 | NUR ---
HS MEDS GIVEN. PT REQUESTED IV MORPHINE FOR CHEST/RIB PAIN. REFUSED WELLBUTRIN.
[2016-04-30 01:12] VITALS: BP 98/55
[2016-04-30 05:01] VITALS: BP 124/85
--- NOTE | 2016-04-30 05:37 | NUR ---
AM LAB DRAWN. PT C/O RIB/CHEST DISCOMFORT/PAIN. MEDICATED WITH MORPHINE 2MG SIVP AND STARTED VIBRAMYCIN IVPB. WILL MONITOR. CPOC.
[2016-04-30 06:05] LABS: BASOPHILS 0.1 % (0.0-2.0); EOSINOPHILS 0 % (0-7); HEMATOCRIT 30.7 % (36.0-48.0); HEMOGLOBIN 9.7 g/dL (12-16); IMMATURE GRANULOCYTES 0.8 % (0-5); LYMPHOCYTES 5.8 % (15-50); MCH 25.8 pg (26.0-34.0); MCHC 31.6 g/dL (31.0-37.0); MCV 81.6 fL (80.0-100.0); MEAN PLATELET VOLUME 10.1 fL (7.4-10.4); MONOCYTES 4.2 % (2-11); NEUTROPHILS 89.1 % (40-80); PLATELET COUNT 330 10x3/uL (130-400); RBC 3.76 10x6/uL (4.00-5.40); RDW 17.4 % (11.5-14.5); WBC 13.4 10x3/uL (4.8-10.8)
[2016-04-30 06:08] LABS: ANION GAP 20.7 mmol/L (8-16); CALCIUM 9.5 mg/dL (8.5-10.1); POTASSIUM - SERUM 3.7 mmol/L (3.5-5.1)
[2016-04-30 07:26] VITALS: BP 118/58
[2016-04-30 11:48] LABS: % SATURATION 14 % (15-55); IRON 36 ug/dl (35-150); TOTAL IRON BIND CAPACITY 249 ug/dl (260-445); UNSAT IRON BIND CAPACITY 213 ug/dl (150-375)
[2016-04-30 12:04] VITALS: BP 112/50
--- NOTE | 2016-04-30 12:38 | NUR ---
Patient Name: BREN GOLDEN Admission Status: ER Accout number: [id number] Admission Date: 04-28-2016 : 1950 Admission Diagnosis: Attending: GABRIELLA Current LOS: 2 Anticipated DC Date: Planned Disposition: Home Primary Insurance: [employer]ED [employer]ICA[employer] Discharge Planning Comments: * Is the patient Alert and Oriented? Yes 0 * How many steps to enter\exit or inside your home? NONE 0 * PCP DR. ORTIZ 0 * Pharmacy [facility] [address] 0 * Preadmission Environment Home with Family 0 * ADLs Independent 0 * Equipment Cane Nebulizer Shower Chair Walker 0 * Other Equipment [facility] - MEDICAL EQUIPMENT PROVIDER 0 * List name and contact numbers for known caregivers / representatives who currently or will assist patient after discharge: AG GOLDEN, FATHER, 0 * Community resources currently utilized None 0 * Please name any agencies selected above. NONE 0 * Additional services required to return to the preadmission environment? No 0 * Can the patient safely return to the preadmission environment? Yes 0 * Has this patient been hospitalized within the prior 30 days at any hospital? Yes 0 CM MET WITH PT IN ROOM TO DISCUSS DISCHARGE PLANNING AND NEEDS. PT REPORTS LIVING AT HOME INDEPENDENTLY WITH HER SISTER. PT REPORTS HAVING ALL NEEDED MEDICAL EQUIPMENT PROVIDED BY [facility]. PT HAS NO OUTSIDE SERVICES ASSISTING IN THE HOME. CM DISCUSSED AVAILABILITY OF HOME HEALTH, REHAB SERVICES AND MEDICAL EQUIPMENT. PT DENIES DISCHARGE NEEDS, REPORTS HER SISTER WILL PICK HER UP FOR DISCHARGE HOME. Tractor Trailer Technician: Wero Rivera
--- NOTE | 2016-04-30 13:56 | NUR ---
Nutrition follow-up: Diet: ADA consistent CHO PO intake ~90% average of last 6 meals Labs reviewed +BM Wt: 152# RDN following.
[2016-04-30 16:00] VITALS: BP 109/59
[2016-04-30 17:21] LABS: ERYTHROCYTE SEDIMENTATION RATE 67 mm/hr (0-30)
--- NOTE | 2016-04-30 17:25 | NUR ---
PT C/O HER R.FA HURTING WHERE IV IS. R.FA PIV INFILTRATED, IMMEDIATELY STOPPED ANBX INFUSION AND REMOVED IV WITH CATH TIP FULLY INTACT. WILL TRY TO REGAIN ACCESS AFTER PT FINISHES EATING SHE REQUESTED.
--- NOTE | 2016-04-30 19:12 | NUR ---
NEW IV ACCESS GAINED. 22 GUAGE X1 ATTEMPT VIA R.FA. RECONNECTED PTS IVPB INFUSING OVER 2 HOURS. PT VOICED THANKS AND DENIES ANY FURTHER NEEDS AT THIS TIME. CL IN REACH, BED IN LOWEST, SIDE RAILS X2.
--- NOTE | 2016-04-30 19:17 | NUR ---
URINE SAMPLE COLLECTED AND SENT TO LAB.
[2016-04-30 19:24] LABS: CREATININE - URINE 16.3 mg/dL (30-125)
[2016-04-30 19:25] LABS: PRO/CRE RATIO URINE 0.1 mg/g; PROTEIN - URINE 2.3 mg/dL (0.0-11.9)
[2016-04-30 19:29] LABS: APPEARANCE HAZY (CLEAR); GLUCOSE NEGATIVE (NEGATIVE); KETONE NEGATIVE (NEGATIVE); LEUKOCYTE ESTERASE TRACE (NEGATIVE); NITRITE NEGATIVE (NEGATIVE); PROTEIN NEGATIVE (NEGATIVE); UROBILINOGEN NORMAL (NORMAL)
[2016-04-30 19:30] LABS: BILIRUBIN NEGATIVE (NEGATIVE); COLOR STRAW (YELLOW)
[2016-04-30 19:31] LABS: BACTERIA FEW /hpf (NONE SEEN); EPITHELIAL CELLS 0-5 /hpf (0-5); RED CELLS - URINE 0-5 /hpf (0-5); WHITE CELLS - URINE 0-5 /hpf (0-5); YEAST <1+ /hpf (NONE SEEN)
[2016-04-30 20:25] VITALS: BP 139/61
--- NOTE | 2016-04-30 20:40 | NUR ---
PT RESTING IN BED WITH GREAT PAIN AND DISCOMFORT IN HER RIB AREA. EARLIER SHE RECIEVED IV MORPHINE THAT ENDED UP BEING GIVEN IN AN INFILTRATED IV. NEW IV WAS SITED TO SAME ARM, ALTERNATE SITE AND PT NOW AGAIN MEDICATED WITH MORPHINE 2 MGS SIVP, WELL ADMINISTERING HER HS MEDS, PLUS REQUESTED TUSSIONEX AND XANAX. NONLABORED RESPIRATIONS ON ROOM AIR. SR PER TELEMETRY. SEE SHIFT ASSESSMENT. CPOC.
[2016-05-01 00:41] VITALS: BP 123/60
--- NOTE | 2016-05-01 00:45 | NUR ---
PT MEDICATED WITH MORPHINE FOR PAIN IN RIBS/CHEST. CRYING, ROCKING BACK AND FORTH. WILL MONITOR.
--- NOTE | 2016-05-01 04:06 | NUR ---
RESTING IN BED WITH NO DISTRESS. NO FURTHER SIGNS OF DISCOMFORT.
[2016-05-01 05:48] VITALS: BP 177/72
[2016-05-01 06:09] LABS: BASOPHILS 0.2 % (0.0-2.0); EOSINOPHILS 0 % (0-7); IMMATURE GRANULOCYTES 1.7 % (0-5); LYMPHOCYTES 16.6 % (15-50); MCH 25.8 pg (26.0-34.0); MCHC 31.3 g/dL (31.0-37.0); MCV 82.5 fL (80.0-100.0); MEAN PLATELET VOLUME 9.8 fL (7.4-10.4); MONOCYTES 7.9 % (2-11); NEUTROPHILS 73.6 % (40-80); PLATELET COUNT 313 10x3/uL (130-400); RBC 3.88 10x6/uL (4.00-5.40); RDW 17.3 % (11.5-14.5); WBC 11.4 10x3/uL (4.8-10.8)
[2016-05-01 06:25] LABS: ANION GAP 14.6 mmol/L (8-16); CALCIUM 8.9 mg/dL (8.5-10.1); CARBON DIOXIDE 26.4 mmol/L (21.0-32.0); CREATININE - SERUM 1.8 mg/dL (0.6-1.3)
--- NOTE | 2016-05-01 07:23 | NUR ---
PT SITTING UP IN BED DENIES NEEDS AT THIS TIME WILL CONT TO MONITOR.
[2016-05-01 07:55] LABS: MAGNESIUM - SERUM 1.6 mg/dL (1.8-2.4); PHOSPHOROUS 3.8 mg/dL (2.5-4.9)
[2016-05-01 08:00] VITALS: BP 125/56
[2016-05-01 10:12] LABS: FOLATE (FOLIC ACID) - SERUM 4.8 ng/mL (>3.0)
[2016-05-01 12:00] VITALS: BP 122/62
[2016-05-01 16:27] VITALS: BP 110/62
--- NOTE | 2016-05-01 18:15 | NUR ---
PT SITTING UP IN BED CO PAIN 8 GENERALIZED. PAIN MEDS NOT DUE YET. CALLED DR SHANKS SHE SAID TO CHANGE PAIN MED TO [place] 10 Q6HPRN. PHARM NOT HERE TO VERIFY CALLED [place] SUP TO OVERRIDE. WILL GIVE SOON HE GETS HERE.
[2016-05-01 21:20] VITALS: BP 144/53
--- NOTE | 2016-05-01 21:27 | NUR ---
ALERT/ORIENTED. PIV TO RFA. NONLABORED RESPIRATIONS ON ROOM AIR. INDEPENDENT WITH ADLS/BATHROOM. ASSESSMENT COMPLETED. HS MEDS GIVEN. PAIN PILL/XANAX AND COUGH MEDICATION PER REQUEST. WILL MONITOR.
[2016-05-02 00:30] VITALS: BP 138/63
--- NOTE | 2016-05-02 03:20 | NUR ---
PT RESTING WITH EYES CLOSED. RESPS EVEN/NONLABORED. NO DISTRESS. CPOC.
[2016-05-02 04:30] VITALS: BP 123/67
[2016-05-02 05:03] LABS: BASOPHILS 0.4 % (0.0-2.0); EOSINOPHILS 0.1 % (0-7); HEMATOCRIT 30.9 % (36.0-48.0); HEMOGLOBIN 9.5 g/dL (12-16); IMMATURE GRANULOCYTES 3.3 % (0-5); LYMPHOCYTES 22.5 % (15-50); MCH 25.6 pg (26.0-34.0); MCHC 30.7 g/dL (31.0-37.0); MCV 83.3 fL (80.0-100.0); MONOCYTES 7.7 % (2-11); PLATELET COUNT 295 10x3/uL (130-400); RBC 3.71 10x6/uL (4.00-5.40); RDW 17.5 % (11.5-14.5); WBC 10.7 10x3/uL (4.8-10.8)
[2016-05-02 06:02] LABS: ANION GAP 15.2 mmol/L (8-16); CALCIUM 8.8 mg/dL (8.5-10.1); CARBON DIOXIDE 24.9 mmol/L (21.0-32.0); CREATININE - SERUM 1.6 mg/dL (0.6-1.3); MAGNESIUM - SERUM 1.7 mg/dL (1.8-2.4); PHOSPHOROUS 3.5 mg/dL (2.5-4.9); POTASSIUM - SERUM 4.1 mmol/L (3.5-5.1)
--- NOTE | 2016-05-02 07:15 | NUR ---
RECEIVED REPORT. ASSUMED CARE OF PATIENT. PATIENT SITTING UP IN BED WITH ATTENTION TOWARD TELEVISION. PATIENT COMPLAINING IV INFUSING ANTIBIOTIC IS HURTING HER ARM. RIGHT AC AREA NOTED EDEMATOUS. IV STOPPED. REQUESTED TO RESITE IV TO COMPLETE DOXYCYCLINE AND PATIENT REFUSED RESITING IV. PATIENT STATES SHE IS GOING HOME TODAY. CALL LIGHT WITH IN REACH. NO DISTRESS.
[2016-05-02 08:00] VITALS: BP 132/83
--- NOTE | 2016-05-02 08:30 | NUR ---
22 GAUGE IV REMOVED FROM RIGHT FOREARM. CATHETER TIP INTACT. NO BLEEDING FROM SITE. 2X2 GAUZE APPLIED AND SECURED WITH TAPE. NO DISTRESS. PATIENT REFUSING TO HAVE IV SITE RESITED.
--- NOTE | 2016-05-02 10:11 | NUR ---
PATIENT CONTINUES TO REFUSE IV TO RESITED FOR IV MEDICATIONS DUE TO PATIENT STATES SHE IS GOING HOME TODAY AND SHE HAS BEEN STUCK ENOUGH. RISK/BENEFITS EXPLAINED. NO DISTRESS.
[2016-05-02 12:00] VITALS: BP 112/78
[2016-05-02] MEDS ORDERED: FERREX 150 PLUS1 CAP PO (12:37)
[2016-05-02] MEDS ORDERED: LOPRESSOR25 MG PO (12:37)
[2016-05-02] MEDS ORDERED: NICODERM C1 PATCH .2 TRANSDERM (12:37)
[2016-05-02] MEDS ORDERED: MELATONIN 3 MG1 TAB PO (12:38)
[2016-05-02] MEDS ORDERED: SYMBICORT 16010.2 GM INH (12:40)
[2016-05-02] MEDS ORDERED: PROAIR HFA8.5 GM INH (12:41)
[2016-05-02] MEDS ORDERED: PREDNISONE10 MG PO (12:45)
--- NOTE | 2016-05-02 15:06 | NUR ---
1500 DISCHARGE INSTRUCTIONS PROVIDED TO PATIENT AND FAMILY. PATIENT VERBALIZED ALL INSTRUCTIONS. STRESSED THE IMPORTANCE OF FOLLOWING UP WITH AND . PATIENT HAD NO QUESTIONS. INSTRUCTED PATIENT TO CALL IF SHE HAD ANY QUESTIONS AFTER SHE GOT HOME.
[2016-05-02 15:08] LABS: SPE - A/G RATIO 0.9 (0.7-1.7); SPE - ALBUMIN 2.7 g/dL (2.9-4.4); SPE - ALPHA-1 GLOBULIN 0.3 g/dL (0.0-0.4); SPE - ALPHA-2 GLOBULIN 1.2 g/dL (0.4-1.0); SPE - BETA GLOBULIN 0.9 g/dL (0.7-1.3); SPE - GAMMA GLOBULIN 0.5 g/dL (0.4-1.8); SPE - M-SPIKE Not Observed g/dL (Not Observed); SPE - TOTAL PROTEIN 5.6 g/dL (6.0-8.5)
--- NOTE | 2016-05-02 15:08 | NUR ---
PATIENT CHOSE TO AMBULATE OFF UNIT AT THIS TIME. PATIENT REFUSED WHEELCHAIR. PATIENT LEFT UNIT WITH ALL PERSONAL BELONGINGS. PATIENT DISCHARGED TO HOME. NO DISTRESS UPON LEAVING UNIT WITH HER DAUGHTER.
--- NOTE | 2016-05-03 14:16 | EC ---
PATIENT:BREN GOLDEN DATE OF SERVICE: 04/27/16 SEX: F MEDICAL RECORD: [id number] DATE OF : [birth year] LOCATION:D. D.212 AGE OF PATIENT: 65 ADMISSION DATE: 04/28/16 REFERRING PHYSICIAN: INTERPRETING PHYSICIAN: JERO LUCAS MD ECHOCARDIOGRAM REPORT ECHO CHARGES CLINICAL DIAGNOSIS: ECHOCARDIOGRAPHIC MEASUREMENTS (adult normal given) AC root (d.<3.7cm) LV Septum d (<1.2 cm> Valve Excursion LV Septum (systole) Left Atria (s.<4.0cm> LVPW d(<1.2cm) RV (d.<2.3cm) LVPW (sytole) LV diastole(<5.6CM) MV E-F(>70mm/sec) LV systole LVOT Diameter MV exc.(>10mm) Est.ejection fraction (50-75%) Pericardial Effusion DOPPLER: LVIT A E LA RVSP LVOT AOP1/2T Asc. Ao RVOT RA PA AV Gradient Peak AV Mean AV Area MV Gradient Peak MV Mean MV Area COMMENTS: Subscription Clerk: Sweater Designer: RAZ DATE OF SERVICE: 04/27/2016 Echocardiogram FINDINGS: 1. Left ventricular chamber size is within normal limits. Left ventricular systolic function is normal. Overall ejection fraction estimated at 55%. 2. Left atrium, right atrium, right ventricle chamber sizes are within normal limits. 3. Valvular structures have normal structure and motion. ECHOCARDIOGRAM REPORT [id number] BREN GOLDEN 4. Doppler interrogation reveals mild aortic insufficiency, mild mitral regurgitation, mild tricuspid regurgitation, no other valvular insufficiency or stenosis and pulmonary systolic pressure is estimated at 23 mmHg. 5. There is trace pericardial effusion present. This is not hemodynamically significant. No evidence of left ventricular thrombus. TRANSINT:[id number] Voice Confirmation ID: [id number] DOCUMENT ID: [id number] JERO LUCAS MD at 1416 CC: [id number] DICTATION DATE: 04/27/16 1213 MANAGER FINANCE: 04/27/16 1219 DIS IN 05/02/16 [place] [address]
--- NOTE | 2016-05-03 14:16 | CN ---
PATIENT NAME:BREN GOLDEN MEDICAL RECORD: [id number] : [birth year] LOCATION:. D.2124 ADMIT DATE: 04/28/16 ACCOUNT: [id number] CONSULTING PHYSICIAN: JERO LUCAS MD REFERRING PHYSICIAN: LOYDA SHANKS MD DATE OF CONSULTATION: 04/27/2016 Cardiology Consultation ADMITTING DIAGNOSES: 1. Chest pain. 2. Coronary artery disease. 3. Recent percutaneous transluminal coronary angioplasty stent. 4. Recent aspiration pneumonia with respiratory failure and code. 5. Hypertension. 6. Smoking history. HISTORY OF PRESENT ILLNESS: Mrs. Golden presents with shortness of breath and chest pain. She has a complicated history. It appears that this late March, she was at [facility], had a 100% occlusion, had a PTCA stent. After that, she had extreme nausea, vomiting secondary to the anesthesia. It appears that she aspirated had a code situation and spent multiple days in the ICU there. She was then transferred to rehabilitation here at [facility]. She was there 2 days, got worsening shortness of breath and chest pain, was diagnosed with pneumonia, was sent up to the acute care setting. She as well had a thoracentesis for pleural effusion. She was sent home a few days ago. She now returns back to the Emergency Room. The chest pain she is having now has been there since the thoracentesis. It has worsened over the past 3 days. Her troponin is normal. EKG is with no acute ST-T changes. PHYSICAL EXAMINATION: GENERAL APPEARANCE: Well-nourished, well-developed, appears stated age. Level of distress, comfortable. PSYCHIATRIC: Mental status, alert, normal affect. Orientation, oriented to time, place and person. EYES: Lids and conjunctiva, noninjected. No discharge, no pallor. ENT: Lips, teeth, gums, normal dentition. Oropharynx, no cyanosis, no pallor. NECK: Carotid arteries, bilateral normal upstroke, no bruits, no thrills. JUGULAR VEINS: No jugular venous pressure or distention. CERVICAL LYMPH NODES: Nontender, nonenlarged. THYROID: Not enlarged. Nontender. No nodules. LUNGS: Respiratory effort, unlabored. CHEST: Normal curvature. No thoracic deformity. No chest wall tenderness. Percussion, resonant. Auscultation, clear. No wheezes, no rales, no rhonchi. CARDIOVASCULAR: Precordial exam, nondisplaced. No heaves or pericardial thrills. Rate and rhythm, regular. Heart sounds, normal S1, normal S2. No S3, no gallop, no rub. Systolic murmur, not heard. Diastolic murmur, not heard. EXTREMITIES: No cyanosis, no edema. Peripheral pulses, full and equal in all extremities, except as noted. No bruits appreciated. ABDOMEN: Soft, nondistended. Normal aorta. No bruit. Nontender. No masses. Liver, nontender, no hepatomegaly. Spleen, nontender, no splenomegaly. MUSCULOSKELETAL: No joint tenderness. No joint swelling. No erythema. NEUROLOGICAL: Normal gait, normal strength, normal tone. SKIN: Warm and dry. CONSULT REPORT [id number] BREN GOLDEN REVIEW OF SYSTEMS: The patient reports easy bruising but reports no swollen glands. The patient reports no fever, no night sweats, no significant weight gain, no significant weight loss. No significant exercise tolerance. The patient reports no dry eyes, no irritation, no vision change. Patient reports no difficulty hearing and no ear pain. Patient reports no frequent nose bleeds or nose and sinus problems. Patient reports on arm pain on exertion. No shortness of breath while lying down. No history of heart murmur. Patient reports no cough, no wheezing or coughing up blood. Patient reports no abdominal pain, no vomiting. Normal appetite. No diarrhea and not vomiting blood. No nausea and no constipation. Patient reports no incontinence. No difficulty urinating. No hematuria. No increased frequency. Patient reports no muscle aches. No weakness, no arthralgias, no back pain. No swelling of the extremities. Patient reports no abnormal mole, no jaundice, no rashes. Reports no loss of consciousness. No weakness and no numbness. No seizures, dizziness, or headaches. The patient reports no depression, no sleep disturbance, feeling safe in a relationship and no alcohol abuse. Patient reports on fatigue. Reports no runny nose or sinus pressure. No itching, no hives, and no frequent sneezing. IMAGING: Echocardiogram reveals a normal ejection fraction at 55%, trace pericardial effusion that is not significant. A CT angio was done. It is not compatible with pulmonary embolus on CT angio even though her D-dimer is high. OVERALL IMPRESSION: Most likely her shortness of breath, dyspnea on exertion are continued infectious process. I do not think that this is cardiac in nature. She had no other blockages other than the 100% chronic total occlusion. She has no acute ST-T changes. No troponin increase. There is no reason to think that this is compromised. No reason for cardiac catheterization, especially with her renal insufficiency. No other cardiac workup or treatment is necessary at this time. TRANSINT:[id number] Voice Confirmation ID: [id number] DOCUMENT ID: [id number] JERO LUCAS MD at 1416 CC: [id number] DICTATION DATE: 04/27/16 1226 ROBOT PROGRAMMER: 04/27/16 1248 DIS IN 05/02/16 [address] [place] [address]
[2016-05-04 12:16] LABS: UPE RAND - ALBUMIN 13.3 % (()); UPE RAND - ALPHA 2 GLOBULIN 17.6 % (()); UPE RAND - BETA GLOBULIN 21.2 % (()); UPE RAND - GAMMA GLOBULIN 42.9 % (())
--- NOTE | 2016-07-01 11:10 | DS ---
PATIENT:BREN GOLDEN :54 MEDICAL RECORD: [id number] DISCHARGE SUMMARY ADMISSION DATE: 04/28/16 DISCHARGE DATE: 05/02/16 ADMISSION DATE: 04/28/2016 DISCHARGE DATE: 05/02/2016 DIAGNOSES: 1. Chest pain. 2. Coronary artery disease. 3. Aspiration pneumonia. 4. Acute exacerbation of chronic obstructive pulmonary disease due tracheobronchitis. 5. Cough. 6. Left pleural effusion. 7. Pericardial effusion. CONSULTS: 1. Binh Gonzalez MD 2. Rosalino Abebe MD DIAGNOSTIC TESTS OR STUDIES: 1. Renal ultrasound, which shows small right renal cyst, mild echogenic kidneys suggestive of intrinsic renal disease. 2. Chest x-ray, which shows atelectasis in the right lower lobe and some osteopenia. 3. CTA of the chest which shows no evidence of pulmonary emboli. There was an atelectasis in the lower lung solo and moderate pericardial effusion. 4. 2D echocardiogram, which shows LV function of 55% with mild aortic insufficiency, some mild mitral regurg and trace pericardial effusion, but not hemodynamically significant. HOSPITAL COURSE: The full H&P is located elsewhere on the chart for this patient who was admitted with COPD exacerbation and some intermittent chest pain. She had recently undergone a thoracentesis and had had a chest discomfort since that time. She had no EKG changes. The patient underwent several diagnostic studies, see those findings above. She was placed in the inpatient setting, started on aggressive pulmonary toilet and antibiotic therapy. A cardiology consult was obtained for possible anginal variant; however, she had negative EKG changes and negative cardiac enzymes. Her echo showed a reserved LV function and the pericardial effusion was not hemodynamically significant. The patient did improve with medical therapy. The patient was thought to be stable for discharge to home to follow up in the outpatient setting. See med rec. TRANSINT:[id number] Voice Confirmation ID: [id number] DOCUMENT ID: [id number] Dictated By: GABRIEL CHASE I have interviewed/examined the above patient and agree with these documented findings. DISCHARGE SUMMARY REPORT [id number] CHANTELBREN SHANKS, LOYDA TOWNSEND at 1110 at 0811 CC: [id number] DICTATION DATE: 06/30/16 0855 ENGINE DESIGNER: 07/01/16 0101 DIS IN 05/02/16 [facility] [address], [facility]
== END 2016-05-02 15:00 | disposition home or self-care (01) | DRG 191 ==
LOC: D.ER 08:03 → D.M2 11:31 → OBSVTIME 04-28 16:23 → D.M2 04-28 16:24
PROVIDERS: Emergency Medicine; Internal Medicine Nephrology; ADMIT Family Medicine
DX: J44.1 Chronic obstructive pulmonary disease with (acute) exacerbation (principal); I31.3 Pericardial effusion (noninflammatory); J90 Pleural effusion, not elsewhere classified; F17.203 Nicotine dependence unspecified, with withdrawal; J98.11 Atelectasis; S22.49XA Multiple fractures of ribs, unspecified side, initial encounter for closed fracture; N17.8 Other acute kidney failure; I13.0 Hypertensive heart and chronic kidney disease with heart failure and stage 1 through stage 4 chronic kidney disease, or unspecified chronic kidney disease; X58.XXXA Exposure to other specified factors, initial encounter; I25.10 Atherosclerotic heart disease of native coronary artery without angina pectoris; N14.1 Nephropathy induced by other drugs, medicaments and biological substances; T50.8X5A Adverse effect of diagnostic agents, initial encounter; N18.3 Chronic kidney disease, stage 3 (moderate); Z95.5 Presence of coronary angioplasty implant and graft; Z86.73 Personal history of transient ischemic attack (TIA), and cerebral infarction without residual deficits